=== PATIENT | female | born 1990 | race Caucasian/White ===

== ENCOUNTER 2017-12-26 12:07 | Emergency (ER) | payer BC ==
[2017-12-26 12:29] VITALS: BP 131/89
--- NOTE | 2017-12-26 13:22 | UC ---
Throat Pain/Nasal Link HPI - HPI Summary HPI Summary: c/o dry cough and subsequent sore throat for the past 4 days. Denies fever, nasal congestion or facial/ear pain. History of exercise induced asthma on albuterol PRN - History of Current Complaint Chief Complaint: UCRespiratory Stated Complaint: SORE THROAT Time Seen by Provider: 12/26/17 13:05 Hx Obtained From: Patient Hx Last Menstrual Period: now ?: No Onset/Duration: Gradual Onset, Lasting Days Severity: Moderate Pain Intensity: 0 Cough: Nonproductive - Epiglottits Risk Factors Epiglottis Risk Factors: Negative - Allergies/Home Medications Allergies/Adverse Reactions: Allergies Allergy/AdvReac Type Severity Reaction Status Date / Time cefaclor [From [facility]] Allergy Unknown Verified 12/26/17 12:29 Reaction Details PMH/Surg Hx/FS Hx/Imm Hx Previously Healthy: Yes Respiratory History: Asthma - Surgical History Surgical History: Yes Surgery Procedure, Year, and Place: thyroidectomy - Family History Known Family History: Negative: Cardiac Disease, Hypertension - Social History Alcohol Use: Occasionally Substance Use Type: None Smoking Status (MU): Never Smoked Tobacco Review of Systems Constitutional: Negative ENT: Sore Throat Respiratory: Cough All Other Systems Reviewed And Are Negative: Yes Physical Exam Triage Information Reviewed: Yes Appearance: Well-Appearing, No Pain Distress, Obese Vital Signs: Initial Vital Signs Temp 98.4 F 12/26/17 12:27 Pulse 112 12/26/17 12:27 Resp 18 12/26/17 12:27 BP 131/89 12/26/17 12:27 Pulse Ox 99 12/26/17 12:27 Vital Signs Reviewed: Yes Eyes: Positive: Conjunctiva Clear ENT: Positive: Pharynx normal, TMs normal, Uvula midline Neck: Positive: Supple, Nontender, No Lymphadenopathy Respiratory: Positive: Chest non-tender, Lungs clear, Normal breath sounds, No respiratory distress Cardiovascular: Positive: RRR, No Murmur, Pulses Normal, Brisk Capillary Refill Throat Pain/Nasal Course/Dx - Course Course Of Treatment: acute bronchitis start Flovent MDI bid as directed. Oral hydration, f/u with PCP, referral given - Differential Dx/Diagnosis Provider Diagnoses: Acute Bronchitis Discharge - Sign-Out/Discharge Documenting (check all that apply): Discharge - Discharge Plan Condition: Stable Disposition: HOME Referrals: No Primary Care Phys,NOPCP [Primary Care Provider] - [facility] [Outside] - Billing Disposition and Condition Condition: STABLE Disposition: HOME
== END 2017-12-26 13:30 | disposition home or self-care (01) ==
LOC: UCEAST 12:07
DX: J20.9 Acute bronchitis, unspecified (principal); J45.990 Exercise induced bronchospasm; Z88.1 Allergy status to other antibiotic agents
CPT/HCPCS: 87651; 99212; G0463

== ENCOUNTER 2019-06-05 16:39 | Inpatient (IN) | payer BC ==
[2019-06-05] MEDS ORDERED: Lactated Ringers 1000 ML Bag* 1,000 ML IV ONE ×2 (16:55→17:55)
[2019-06-05] MEDS ORDERED: Buffered Lidocaine 1% SYRIN* 1 ML/SYRINGE INTRADERM ONE (16:55)
[2019-06-05] MEDS ORDERED: Lactated Ringers 1000 ML Bag* 1,000 ML IV SCH ×3 (17:00→23:00)
[2019-06-05] MEDS ORDERED: fentaNYL* 50 MCG/ML 2 ML VIAL (100 MCG VIAL) ONE (17:22)
[2019-06-05] MEDS ORDERED: OBEPIDURAL* 250 ML EPIDURAL ONE (17:31)
--- NOTE | 2019-06-05 17:32 | HP ---
General Information - Reason for Visit SROM in labor - General Information Maternal Age: 28 Grav: 1 Para: 0 Estimated Due Date: 06/14/19 Determined By: LMP Gestational Age in Weeks/Days: 38w5d Maternal Blood Type and Rh: O Positive - Results this Serology/RPR Result: Non-Reactive Rubella Result: Immune HBsAg Result: Negative HIV Result: Negative GBS Culture Result: Negative Past Medical History Pertinent Past Medical History: See Records - Hx of Lupus like disease , has had normal workup and ongoing monitoring throughout . Hx of Thyroidectomy/partial parathyroidectomy in the setting of thyroid cancer Pertinent Past Surgical History: See Records - s/p thyroidectomy, s/p partial parathyroidectomy Pertinent Family History: See Records - Antepartal Records Antepartal Records: Reviewed, Complicated by: - Lupus like autoimmune condition, hypothyroidism, s/p thyroidectomy/partial parathyroidectomy Review of Systems Constitutional: Uncomfortable CV Complaint: No Respiratory: Shortness of Breath: No Gastrointestinal: No Nausea/Vomiting, Normal Bowel Movement Genitourinary: Leaking Fluid, No Dysuria, No Bleeding Musculoskeletal: No Complaint, No Epigastric Pain Neurological: No Headache, No Visual Changes Movement: Normal Exam Allergies/Adverse Reactions: Allergies cefaclor [From Ceclor] Allergy (Verified 04/25/18 10:04) Unknown Reaction Details Temp 97.6 Pulse 98 RR 20 BP 151/76 --> 135/66 O2 Saturation 100% - Measurements Height: 5 ft 6 in Weight: 230 lb Body Mass Index (BMI): 37.1 Pre- Weight: 180 lb - Exam CVA: No CVA Tenderness Extremities: No Edema Heart: Normal Rhythm/Heart Sounds HEENT: No Significant Findings Lungs: Clear Bilaterally Rectal: Rectal Exam Deferred Reflexes: DTR 2+ Thyroid: No Thyromegaly - Abdominal Exam Abdomen Exam: Non-Tender, Fundal Height Consistent with Dates - Ultrasound/Biophysical Profile Ultrasound Status: Not Done Targeted Exam Findings Estimated Weight: EFW 7# Cervical Exam: 4cm Effacement: 80% Station: -2 Presenting Part: Vertex Membrane Status: SROM Amniotic Fluid Evaluation: Gross Rupture Bleeding/Discharge: None EFM Findings - External Monitor Findings Baseline Heart Rate: 130 External Monitor Findings: Accelerations Present, No Pattern of Variable or Late Decelerations, Variability Moderate, Baseline Stable External Monitor Findings Comment: Category I FHT Contractions: Regular, Strong, 45-90 Seconds Assessment/Plan - Assessment 28 y/o G1 at 38w5d with SROM in labor, complicated by Hx of Lupus like autoimmune disorder, hypothyroidism s/p thyroidectomy for thyroid ca, s/p partial parathyroidectomy, requires close monitoring of calcium - Plan Plan: Admit - Anticipate Vaginal Delivery Plan Comment: SROM'd at 5pm, clear fluid - GBS negative, no abx ppx indicated OK for epidural now Consult placed to Dr. Farmer with endocrinology to aid in management given hx of partial parathyroidectomy and susceptability to hypocalcemia, Ca level ordered and pending, continue Calcitriol 0.[address] Farmer, he will formally consult in AM, unless other concern arises. Hx of Autoimmune Lupus like disease - s/p NST's and q 4 week growth USN's, all WNL RH+/Rubella Immune Mild range BP noted on admission, pt very uncomfortable - will continue to monitor, pt is asymptomatic, will collect PEC labs if persistently elevated BP's Expectant management, will augment with Pitocin if indicated - Date/Time of Admission Date of Admission: 06/05/19 Time of Admission: 16:51
[2019-06-05 17:44] LABS: ABS Eosinophils 0.1 10^3/ul (0-0.6); ABS Lymphocytes 2.1 10^3/ul (1.0-4.8); ABS Neutrophils 11.6 10^3/ul (1.5-7.7); Eosinophil % 0.8 %; Hematocrit 40 % (35-47); Hemoglobin 13.4 g/dL (12.0-16.0); Lymphocyte % 14.3 %; Mean Corpuscular HGB Conc 34 g/dL (31-36); Mean Corpuscular Hemoglobin 29 pg (27-31); Mean Corpuscular Volume 86 fL (80-97); Mean Platelet Volume 9.3 fL (7.4-10.4); Nucleated Red Blood Cells % 0.1; Platelet Count 230 10^3/uL (150-450); Red Blood Count 4.62 10^6 /uL (3.70-4.87); Red Cell Distribution Width 15 % (10-15); White Blood Count 14.8 10^3/uL (3.5-10.8)
[2019-06-05] MEDS ORDERED: Phenylephrine 40 MCG/ML SYRINGE IV PUSH PRN ×2 (17:55)
[2019-06-05] MEDS ORDERED: Sodium Citrate/Citric Acid* 15 ML UDC PO PRN (17:55)
[2019-06-05] MEDS ORDERED: OBEPIDURAL* 250 ML EPIDURAL SCH (18:00)
[2019-06-05 18:28] LABS: Urine Benzodiazepine Screen None Detected (None Detect); Urine Opiates Screen None Detected (None Detect)
[2019-06-05] MEDS: Calcitriol CAP* 0.25 MCG PO SCH (20:15)
[2019-06-05] MEDS ORDERED: Oxytocin in LR* 20 UNITS/1,000 ML BAG IVPB ONE (21:59)
[2019-06-05] MEDS ORDERED: Levothyroxine TAB* 100 MCG TAB PO SCH (22:00)
[2019-06-05] MEDS ORDERED: Glycerin ADULT SUPP PR PRN (22:24)
[2019-06-05] MEDS ORDERED: Witch Hazel PAD* JAR TOPICAL PRN (22:24)
[2019-06-05] MEDS ORDERED: Dibucaine 1% 28.35 GM TUBE PR PRN (22:24)
--- NOTE | 2019-06-05 22:32 | PROCNOTE ---
[facility] OB: Delivery Note - Delivery A Date of : 06/05/19 Time of : 21:38 Sex: Male Score 1 Minute: 9 Score 5 Minutes: 9 Gestational Age in Weeks and Days at Delivery: 38 Weeks and 5 Days Delivery Method: Spontaneous Vaginal Labor: Spontaneous Did Patient attempt ?: N/A, No Previous Amniotic Fluid: Clear Estimated Blood Loss: 250 Anesthesia/Analgesia: CEI for Labor - Nursery Level of Nursery: Regular/Bedside - Perineum Perineal Injury: 2nd Degree Perineal Repair: By Delivering Practioner - Events Delivery Events of Note: None Apply - Additional Delivery Notes Additional Delivery Notes: 28 y/o female G1 presented with SROM in labor Epidural given for pain control at 4cm, progressed to fully dilated over ~3 hours Pushed for ~1hr Delivered through a loose nuchal x 1 2nd degree laceration repaired with single vicryl suture Mother and baby doing well at time of this delivery note
[2019-06-06] MEDS: Acetaminophen TAB* 325 MG PO PRN ×3 (00:34→12:52)
[2019-06-06] MEDS: Ibuprofen TAB* 600 MG PO PRN ×4 (00:34→21:07)
[2019-06-06] MEDS ORDERED: Lidocaine 1% INJ* 10 MG/ML 30 ML SDV ONE (02:09)
[2019-06-06] MEDS ORDERED: Ferrous Gluconate TAB* 324 MG TAB PO SCH (06:00)
[2019-06-06] MEDS ORDERED: Simethicone TAB* 80 MG TAB.CHEW PO SCH (08:30)
[2019-06-06] MEDS ORDERED: Cholecalciferol TAB* 1000 UNITS PO SCH (09:00)
[2019-06-06 09:36] LABS: ABS Eosinophils 0.1 10^3/ul (0-0.6); ABS Neutrophils 11.2 10^3/ul (1.5-7.7); Eosinophil % 0.5 %; Hematocrit 33 % (35-47); Hemoglobin 10.9 g/dL (12.0-16.0); Mean Corpuscular HGB Conc 33 g/dL (31-36); Mean Corpuscular Hemoglobin 29 pg (27-31); Mean Corpuscular Volume 87 fL (80-97); Mean Platelet Volume 9.2 fL (7.4-10.4); Platelet Count 168 10^3/uL (150-450); Red Blood Count 3.77 10^6 /uL (3.70-4.87); Red Cell Distribution Width 15 % (10-15); White Blood Count 14.3 10^3/uL (3.5-10.8)
[2019-06-06] MEDS: Docusate CAP* 100 MG PO SCH ×3 (09:43→21:08)
[2019-06-06] MEDS: Calcitriol CAP* 0.25 MCG PO SCH ×2 (09:44→21:08)
--- NOTE | 2019-06-06 16:32 | CONSULT ---
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 She is eucalcemic by labs and is feeling well on current dose of calcitriol (0.25mcg TID). Her corrected calcium goal is >8.5 on calcitriol. This will likely be achieved with lower dose of calcitriol after cessation of lacation. Finally, I recommend that she reduce her levothyroxine dose to achieve TSH 0.5-2.5. PLAN: - continue calcitriol 0.25mcg TID as long as - reduce calcitriol 0.25mcg BID when stops - continue calcium 1000mg BID - reduce levothyroxine to 175mcg/day - d/c cholecalciferol SUBJECTIVE: History of Present Illness: 28 yo F with history of thyroidectomy and partial parathyroidectomy in 2003. She was found to have differentiated thyroid cancer on pathology and received MADRID treatment at the time of diagnosis. Her last thyroid evaluation in November 2015 found undectable Tg, negative anti-Tg and OTILIO on neck ultrasound. Her TSH has been maintained 0.1-0.5 for the past 10 years. Since her surgery, she has experienced multiple episodes of symptomatic hypocalcemia with >20 admissions and at least 1 episode of tetany. She was treated with calcium + vitamin D for the first year and has taken PRN calcium carbonate (TUMS) in more recent years. Her last calcium was 8.0, which she feels is good for her. She has been non-adherent to calcitriol for several years. She has done well during this and has been able to maintain corrected calcium in the low-normal range on varying doses of calcitriol. Her TSH has been low for many years on current dose of levothyroxine 200mcg/day, which she has not changed this . Past Medical History: 1. Thyroid cancer s/p thyroidectomy and MADRID, 2003 2. Iatrogenic hypoparathyroidism s/p sub-total parathyroidectomy, 2003 Medications Prior to Admission: Levothyroxine Sodium 200 mcg PO DAILY 08/04/16 [History Confirmed 06/05/19] Calcitriol [Rocaltrol] 0.25 mcg PO TID 06/05/19 [History Confirmed 06/05/19] Cholecalciferol TAB* [Vitamin D TAB*] 2,000 units PO DAILY 06/05/19 [History Confirmed 06/05/19] Daily Duo Combo Pack 1 tab PO DAILY 06/05/19 [History Confirmed ] Inpatient Medications: Calcitriol (Rocaltrol Cap*) 0.5 mcg PO BID [facility] Last Admin: 06/06/19 09:44 Dose: 0.5 mcg Cholecalciferol (Vitamin D Tab*) 2,000 units PO DAILY [facility] Last Admin: 06/06/19 09:43 Dose: 2,000 units Levothyroxine Sodium (Synthroid Tab*) 200 mcg PO 2200 [facility] Last Admin: 06/06/19 00:39 Dose: 200 mcg Allergies/Intolerances: cephalosporins Social History: , lives with . Works at [employer]. Family History: No thyroid disease, otherwise non-contributory. Review of Systems: As above. OBJECTIVE: Temp Pulse Resp BP Pulse Ox 97.8 F 93 17 142/71 06/06/19 15:51 06/06/19 15:51 06/06/19 15:51 06/06/19 15:51 General: alert, pleasant, oriented, no distress ENT: neck supple, absent thyroid, negative [place] Chest: CTAB, no wheezing or crackles CV: RRR, no murmur Abdomen: soft, non-tender Extremities: no edema, distal pulses intact Skin: warm, dry, no rash Neuro: grossly intact motor/sensory in extremities Psych: restricted affect, pleasant Labs: WBC 14.3 10^3/uL (3.5-10.8) H 06/06/19 09:13 RBC 3.77 10^6 /uL (3.70-4.87) 06/06/19 09:13 Hgb 10.9 g/dL (12.0-16.0) L 06/06/19 09:13 Hct 33 % (35-47) L 06/06/19 09:13 MCV 87 fL (80-97) 06/06/19 09:13 MCH 29 pg (27-31) 06/06/19 09:13 MCHC 33 g/dL (31-36) 06/06/19 09:13 RDW 15 % (10-15) 06/06/19 09:13 Plt Count 168 10^3/uL (150-450) 06/06/19 09:13 MPV 9.2 fL (7.4-10.4) 06/06/19 09:13 Neut % (Auto) 78.0 % 06/06/19 09:13 Lymph % (Auto) 14.0 % 06/06/19 09:13 Jerome % (Auto) 7.2 % 06/06/19 09:13 Eos % (Auto) 0.5 % 06/06/19 09:13 Baso % (Auto) 0.3 % 06/06/19 09:13 Absolute Neuts (auto) 11.2 10^3/ul (1.5-7.7) H 06/06/19 09:13 Absolute Lymphs (auto) 2.0 10^3/ul (1.0-4.8) 06/06/19 09:13 Absolute Monos (auto) 1.0 10^3/ul (0-0.8) H 06/06/19 09:13 Absolute Eos (auto) 0.1 10^3/ul (0-0.6) 06/06/19 09:13 Absolute Basos (auto) 0.0 10^3/ul (0-0.2) 06/06/19 09:13 Absolute Nucleated RBC 0.0 10^3/ul 06/06/19 09:13 Nucleated RBC % 0.0 06/06/19 09:13 Calcium 8.2 mg/dL (8.6-10.3) L 06/05/19 17:22 Urine Opiates Screen None detected (None Detect) 06/05/19 17:35 Ur Barbiturates Screen None detected (None Detect) 06/05/19 17:35 Ur Phencyclidine Scrn None detected (None Detect) 06/05/19 17:35 Ur Amphetamines Screen None detected (None Detect) 06/05/19 17:35 U Benzodiazepines Scrn None detected (None Detect) 06/05/19 17:35 Urine Cocaine Screen None detected (None Detect) 06/05/19 17:35 U Cannabinoids Screen None detected (None Detect) 06/05/19 17:35 Blood Type O Positive 06/05/19 17:22 Antibody Screen Negative 06/05/19 17:22
[2019-06-06] MEDS ORDERED: Levothyroxine TAB* 175 MCG TAB PO SCH (22:00)
--- NOTE | 2019-06-07 09:13 | PTEDU ---
Patient Name: HALLIE ANN HALLIE ANN selected video: Never Ever Shake a Baby to view on 06/07/2019 at 9:11:38 AM from [email or web address] [email or web address]
--- NOTE | 2019-06-07 09:22 | PTEDU ---
Patient Name: HALLIE ANN HALLIE ANN selected video: BBOB: Bonding Through Massage to view on 06/07/2019 at 9:20 :10 AM from [email or web address]
[2019-06-07] MEDS: Docusate CAP* 100 MG PO SCH (09:27)
[2019-06-07] MEDS: Calcitriol CAP* 0.25 MCG PO SCH (09:28)
[2019-06-07] MEDS: Ibuprofen TAB* 600 MG PO PRN (09:28)
[2019-06-07 10:59] VITALS: BP 137/79
== END 2019-06-07 15:52 | disposition home or self-care (01) | DRG 560 ==
LOC: MCHOBOUT 16:39 → MCHOB 17:08
PROVIDERS: ADMIT Obstetrics & Gynecology; ATTEND Obstetrics & Gynecology
PROC: 10E0XZZ Delivery of Products of Conception, External Approach (ICD-10-PCS; principal; 2019-06-05)
PROC: 0KQM0ZZ Repair Perineum Muscle, Open Approach (ICD-10-PCS; 2019-06-05)
DX: O99.284 Endocrine, nutritional and metabolic diseases complicating childbirth (principal); Z37.0 Single live birth; E89.0 Postprocedural hypothyroidism; E89.2 Postprocedural hypoparathyroidism; O99.12 Other diseases of the blood and blood-forming organs and certain disorders involving the immune mechanism complicating childbirth; M32.9 Systemic lupus erythematosus, unspecified; O69.81X0 Labor and delivery complicated by cord around neck, without compression, not applicable or unspecified; O70.1 Second degree perineal laceration during delivery; O16.4 Unspecified maternal hypertension, complicating childbirth; Z3A.38 38 weeks gestation of pregnancy
CPT/HCPCS: 36415; 80307; 82310; 85025; 86850; 86900; 86901; A9270-GY; J3010

== ENCOUNTER 2019-09-18 08:52 | Day surgery (SDC) | payer BC ==
[~2019-09-18 08:52] MED LIST: Buffered Lidocaine 1% SYRIN* 1 ML/SYRINGE INTRADERM ONE; Lactated Ringers 1000 ML Bag* 1,000 ML IV SCH; Sodium Citrate/Citric Acid* 15 ML UDC PO ONE
[2019-09-18] MEDS ORDERED: Sodium Citrate/Citric Acid* 15 ML UDC ONE (10:36)
[2019-09-18] MEDS ORDERED: fentaNYL* 50 MCG/ML 2 ML VIAL (100 MCG VIAL) ONE (11:34)
[2019-09-18] MEDS ORDERED: Lidocaine 2% PF * 5 ML VIAL ONE (11:35)
[2019-09-18] MEDS ORDERED: Midazolam* 1 MG/ML 2 ML VIAL (2 MG) ONE ×2 (11:35→12:07)
[2019-09-18] MEDS ORDERED: Propofol* 10 MG/ML 20 ML BTL ONE ×2 (11:35→12:41)
[2019-09-18] MEDS ORDERED: Acetaminophen IV 1GM/100ML * 1,000 MG/100 ML VIAL IVPB ONE (11:44)
[2019-09-18] MEDS ORDERED: Naloxone* 0.4 MG/ML 1 ML VIAL IV PRN (11:44)
[2019-09-18] MEDS ORDERED: fentaNYL* 50 MCG/ML 2 ML VIAL (100 MCG VIAL) IV PRN (11:44)
[2019-09-18] MEDS ORDERED: DiMENhydriNATE IV* 50 MG/ML VIAL IV PUSH PRN (11:44)
[2019-09-18] MEDS ORDERED: Bupivacaine 0.25% SDV PF* 10 ML VIAL INJ ONE (12:27)
[2019-09-18] MEDS ORDERED: Ketorolac INJ* 30 MG/ML 1 ML VIAL ONE (12:41)
[2019-09-18 14:24] VITALS: BP 136/85
--- NOTE | 2019-09-19 01:47 | OP ---
OPERATIVE REPORT: DATE OF OPERATION: 09/18/19 - SDS DATE OF : 86 SURGEON: Harinder Vincent MD [employer] SUPERVISOR: GETACHEW Dunham ANESTHESIOLOGIST: Dr. Stovall. ANESTHESIA: Local MAC. PRE-OP DIAGNOSES: 1. Right de Quervain's disease. 2. Left de Quervain's disease. POST-OP DIAGNOSES: 1. Right de Quervain's disease. 2. Left de Quervain's disease. OPERATIVE PROCEDURES: 1. Right de Quervain's release. 2. Left de Quervain's release. INDICATIONS: Sandra has bilateral de Quervain's. It is quite symptomatic. We talked about treatment options. She wanted to proceed with surgery. ESTIMATED BLOOD LOSS: 2 mL. COMPLICATIONS: None. FINDINGS: See above and below. DESCRIPTION OF PROCEDURE: Sandra was seen in the preoperative holding area. The correct side, site, and procedure were identified. We came back to the operating room. The arm was prepped and draped in the usual fashion and a time- out was performed. The arm was exsanguinated with the Esmarch and the tourniquet was inflated to 250 mmHg on the right and both arms were draped out. I first made a 2-cm incision transversely just proximal to the radial styloid. Dissection was carried down. Full thickness flaps were raised off the tendon sheath. Tendon sheath was released along its dorsal margin. There was no accessory compartment. There was lot of tenosynovitis. The tendon sheath was very thickened. I went ahead and excised all that tenosynovitis. At this point, everything was looking good. The release was complete. The wound was irrigated out, skin was closed with 4-0 Monocryl and Steri- Strip. 0.25% Marcaine was infiltrated about the area. I then went over the left side and in similar fashion, I made a 2 cm transverse incision. Full thickness flaps were raised off the tendon sheath. Ragnell retractors were placed. The tendinous sheath was released along its dorsal margin. The tenosynovitis was excised. Once I had confirmed that the release was complete and that there was no accessory compartment, I irrigated out the wound. Skin was closed with 4-0 Monocryl and Steri-Strip. 0.25% Marcaine was infiltrated. Soft dressings were applied to both sides and she was taken to the recovery room in stable condition. [id number]/[facility] #: [id number] WILI
== END 2019-09-18 14:35 | disposition home or self-care (01) ==
LOC: OR 08:52
PROVIDERS: ATTEND Orthopaedic Surgery Hand Surgery
PROC: 0LN50ZZ Release Right Lower Arm and Wrist Tendon, Open Approach (ICD-10-PCS; 2019-09-18)
PROC: 0LN60ZZ Release Left Lower Arm and Wrist Tendon, Open Approach (ICD-10-PCS; principal; 2019-09-18 11:00)
DX: M65.4 Radial styloid tenosynovitis [de Quervain] (principal); I10 Essential (primary) hypertension; F41.8 Other specified anxiety disorders; E89.0 Postprocedural hypothyroidism; Z85.850 Personal history of malignant neoplasm of thyroid; Z79.899 Other long term (current) drug therapy
CPT/HCPCS: 81025; A9270-GY; J1885; J2250; J2704; J3010; J3490